=== PATIENT | male | born 1950 | race Caucasian/White ===

== ENCOUNTER 2018-11-12 11:27 | Inpatient (IN) | payer MEDICARE, OTHER ==
[~2018-11-12] VITALS: Ht 188 cm; Wt 87.5 kg
[2018-11-12 12:11] LABS: Urine Bacteria FEW /hpf (None Seen); Urine Blood TRACE /uL (Negative); Urine Mucus FEW (None Seen); Urine Specific Gravity 1.026 (1.001-1.035); Urine WBC 10 /hpf (0 - 3)
[2018-11-12 12:16] LABS: Basophils # (auto) 0.1 uL; Basophils % (auto) 0.3 % (0.0-2.0); Eosinophils # (auto) 0 uL; Hematocrit 45.3 % (41.0-53.0); Hemoglobin 14.9 g/dL (13.5-17.5); Lymphocytes # (auto) 1.3 uL; Lymphocytes % (auto) 5.9 % (10.0-50.0); Mean Corpuscular Hemoglobin 28.6 pg (28.0-32.0); Mean Corpuscular Hgb Conc. 32.9 g/dL (32.0-36.0); Monocytes # (auto) 0.9 uL; Monocytes % (auto) 4.4 % (0.0-12.0); Neutrophils # (auto) 19.1 uL; Neutrophils % (auto) 89.4 % (37.0-80.0); Platelet Count (auto) 346 10^3/uL (140-450); Red Blood Cells 5.21 10^6/uL (4.5-5.90); White Blood Cell 21.3 10^3/uL (4.4-10.8)
[2018-11-12 12:28] LABS: Albumin 2.9 g/dL (3.4-5.0); BUN/Creatinine Ratio 10.9; Calcium 8.8 mg/dL (8.5-10.1); Potassium 4.9 mmol/L (3.5-5.1)
[2018-11-12 12:31] LABS: Bilirubin, Total 0.8 mg/dL (0.2-1.0)
[2018-11-12] MEDS ORDERED: SODIUM CHLORIDE 0.9% 1,000 ML IV ONE ×2 (12:40)
[2018-11-12] MEDS ORDERED: TAMSULOSIN HYDROCHLORIDE 0.4 MG CAP PO ONE (12:45)
[2018-11-12] MEDS ORDERED: cefTRIAXone 1GM/50ML D5W 50 ML IV ONE (12:45)
[2018-11-12] MEDS ORDERED: InsuLIN REG 1unit/0.01ml Soln (100units/ml) SC ONE (13:00)
[2018-11-12] MEDS ORDERED: ONDANSETRON HCL 4 MG/2 ML VIAL IV PRN (14:45)
[2018-11-12] MEDS ORDERED: DEXTROSE (50%) 50ML SYRG IV PRN (14:45)
[2018-11-12] MEDS ORDERED: HYDROcodone-ACET 5/325MG TAB PO PRN (14:45)
[2018-11-12] MEDS ORDERED: NITROGLYCERIN 0.4 MG SL TAB SL PRN (14:45)
[2018-11-12] MEDS ORDERED: MORPHINE SULF INJ 2 MG/ML SYRINGE 1ML IV PRN ×2 (14:45)
[2018-11-12] MEDS: SODIUM CHLORIDE 0.9% 1,000 ML IV SCH ×2 (15:03→23:18)
[2018-11-12] MEDS ORDERED: ASPI81CH43 PO (16:01)
[2018-11-12] MEDS: ACCU-CHEK COMFORT CURVE STRIP VI SCH ×2 (16:21→21:36)
--- NOTE | 2018-11-12 16:27 | NUR ---
Telemetry admit from ER BOLIVAR CORCORAN admitted to Telemetry unit after report received from ED. Patient oriented to NAZ CHICAS, RN primary RN, unit, room, bed, and unit policies regarding patient care and visiting hours. Patient now on continuous telemetry monitoring, tele box #7. Patient placed on bedside oxygen at 2L via NC, weighed by bedscale and encouraged to call if they need something. All questions and concerns addressed, patient verbalized understanding. Note: []
[2018-11-12 17:00] VITALS: BP 116/69
[2018-11-12] MEDS: TAMSULOSIN HYDROCHLORIDE 0.4 MG CAP PO SCH (18:34)
[2018-11-12] MEDS: InsuLIN REG 1unit/0.01ml Soln (100units/ml) SC SCH ×2 (18:35→21:37)
[2018-11-12] MEDS: NYSTATIN (MOUTH-THROAT) 500,000 UNITS/5 ML SUSP MT SCH ×2 (18:35→21:36)
--- NOTE | 2018-11-12 18:35 | NUR ---
BLOOD SUGAR/INSULIN ED REPORTED A BLOOD SUGAR OF 346 AND SAID THEY GAVE 4 UNITS OF INSULIN (eMAR SHOWS 3 UNITS GIVEN) AT 1349. THIS NURSE CHECKED THE PATIENT'S BLOOD SUGAR AROUND 1600 AND IT WAS 327. SINCE THE INSULIN HAD BEEN GIVEN A COUPLE OF HOURS BEFORE, THE INSULIN WAS HELD TO AVOID THE PATIENT BOTTOMING OUT THE INSULIN DOSES CAUGHT UP. THE BLOOD SUGAR WAS CHECKED AGAIN AROUND 1730 AND IT WAS 287. DINNER WAS BROUGHT UP TO THE FLOOR AND 9 UNITS OF INSULIN WERE GIVEN. NEXT SCHEDULED BLOOD SUGAR CHECK IS AT 2000. WILL INFORM [employer] INTERPRETER NURSE OF THESE BLOOD SUGARS AND WHAT TIME INSULIN WAS GIVEN.
--- NOTE | 2018-11-12 19:30 | NUR ---
Opening Shift Note Assumed care of patient, awake and alert x4. Family member noted at bedside. Patient denies pain at this time. No S/S of distress/SOB noted at this time. Instructed on plan of care and to call for assistance as needed. Bed is locked in lowest position, side rails x 2 are up, call light is within reach, and bed alarm is on.
[2018-11-12] MEDS: ACETAMINOPHEN 500 MG TAB PO PRN (20:00)
--- NOTE | 2018-11-12 21:30 | NUR ---
ELEVATED TEMPERATURE Provided patient with ice packs to place under armpits, behind neck, and on forehead. Removed blanket from patient and lowered temperature in room. Cooling measures are in place. Will continue to monitor patient.
[2018-11-12 22:00] VITALS: BP 156/103
[2018-11-12 22:05] VITALS: BP 147/86
--- NOTE | 2018-11-12 22:10 | NUR ---
SPOKE WITH HOSPITALIST RE: ELEVATED TEMP Notified Alona Ellis that at approximately 19:40 patient was complaining of chills and feeling hot. Temperature was found to be 99.3. Notified PATRICIA Baez, that this RN administered acetaminophen at 20:00 and upon reassessment, temperature was found to be 102.8, blood pressure: 147/86, and heart rate 120. PATRICIA Baez notified that patient is still complaining of chills and feeling hot and that cooling measures are in place. PATRICIA Baez made aware of current WBC and lactic acid levels. Orders to start vancomycin per protocol tonight and orders for ibuprofen 400mg PO x 1 to be given now received. Orders read back and verified. Will carry out orders as received.
[2018-11-12] MEDS ORDERED: VANCOMYCIN PER PHARMACY 0 MG IV SCH (22:15)
[2018-11-12] MEDS ORDERED: IBUPROFEN 400 MG TAB PO ONE (22:15)
[2018-11-12] MEDS ORDERED: VANCOMYCIN 1GM/250ML 250 ML IV ONE (23:00)
--- NOTE | 2018-11-13 00:05 | NUR ---
REASSESSMENT: TEMPERATURE Patients temperature is trending down. Temperature upon reassessment was found to be 100.7. Patient denies chills at this time. Cooling measures are still in place. Bed is locked in lowest position, side rails x 2 are up, call light is within reach, and bed alarm is on.
[2018-11-13] MEDS: ACCU-CHEK COMFORT CURVE STRIP VI SCH ×6 (00:21→21:04)
[2018-11-13] MEDS: InsuLIN REG 1unit/0.01ml Soln (100units/ml) SC SCH ×6 (00:22→21:04)
--- NOTE | 2018-11-13 03:45 | NUR ---
HOSPITALIST PAGED RE: BLOOD CULTURE RESULTS Hospitalist paged regarding positive blood cultures: gram negative erin. Awaiting call back.
--- NOTE | 2018-11-13 03:51 | NUR ---
HOSPITALIST CALLED BACK RE: BLOOD CULTURES Notified Alona Ellis that patients blood cultures came back positive for gram negative rods. Orders to discontinue Rocephin and continue vancomycin received. Orders to start Zosyn 3.375gm IVP scheduled every six hours received. Orders read back and verified. Will carry out orders as received.
[2018-11-13] MEDS: NYSTATIN (MOUTH-THROAT) 500,000 UNITS/5 ML SUSP MT SCH ×4 (04:51→21:04)
[2018-11-13] MEDS: PIPERACILLIN-TAZOB 3.375GM 100 ML IV SCH ×3 (04:52→18:01)
[2018-11-13 05:00] VITALS: BP 114/70
[2018-11-13] MEDS: SODIUM CHLORIDE 0.9% 1,000 ML IV SCH ×2 (06:55→22:34)
[2018-11-13 07:20] LABS: Basophils # (auto) 0 uL; Basophils % (auto) 0.3 % (0.0-2.0); Eosinophils # (auto) 0 uL; Eosinophils % (auto) 0.1 % (0.0-7.0); Hematocrit 37.9 % (41.0-53.0); Hemoglobin 12.4 g/dL (13.5-17.5); Lymphocytes # (auto) 0.8 uL; Lymphocytes % (auto) 5.5 % (10.0-50.0); Mean Corpuscular Hemoglobin 28.5 pg (28.0-32.0); Mean Corpuscular Hgb Conc. 32.7 g/dL (32.0-36.0); Monocytes % (auto) 6.5 % (0.0-12.0); Neutrophils # (auto) 13.3 uL; Neutrophils % (auto) 87.6 % (37.0-80.0); Platelet Count (auto) 233 10^3/uL (140-450); Red Blood Cells 4.35 10^6/uL (4.5-5.90); Red Cell Distribution Width 13.8 % (11.8-14.3); White Blood Cell 15.2 10^3/uL (4.4-10.8)
--- NOTE | 2018-11-13 07:20 | NUR ---
Open Shift Note Received report on patient, awake and sitting up in bed. Patient shows no signs of distress at this time. Discussed POC with patient. Bed in lowest locked position, side rails up x2 and call light within reach. Will continue to monitor.
[2018-11-13 07:38] LABS: BUN/Creatinine Ratio 13.7; Calcium 7.9 mg/dL (8.5-10.1); Potassium 4.4 mmol/L (3.5-5.1)
[2018-11-13 08:11] VITALS: BP 115/68
[2018-11-13] MEDS ORDERED: cefTRIAXone 1GM/50ML D5W 50 ML IV SCH (09:00)
[2018-11-13] MEDS: FAMOTIDINE 20 MG TAB PO SCH (10:08)
[2018-11-13] MEDS: VANCOMYCIN 750mg/250ml 250 ML IV SCH ×2 (11:06→22:51)
[2018-11-13 13:00] VITALS: BP 126/82
[2018-11-13 16:39] VITALS: BP 129/73
[2018-11-13] MEDS: ACETAMINOPHEN 500 MG TAB PO PRN (16:41)
[2018-11-13] MEDS: TAMSULOSIN HYDROCHLORIDE 0.4 MG CAP PO SCH (18:03)
--- NOTE | 2018-11-13 18:49 | NUR ---
Closing Note Patient sitting up in bed, shows no signs of distress at this time.
--- NOTE | 2018-11-13 19:30 | NUR ---
Opening Shift Note Assumed care of patient, awake and alert x4. Patient denies pain at this time. No S/S of distress/SOB noted at this time. Instructed on plan of care and to call for assistance as needed. Bed is locked in lowest position, side rails x 2 are up, call light is within reach, and bed alarm is on.
[2018-11-13 22:11] VITALS: BP 106/77
[2018-11-14] MEDS: PIPERACILLIN-TAZOB 3.375GM 100 ML IV SCH ×2 (00:09→06:17)
[2018-11-14] MEDS: InsuLIN REG 1unit/0.01ml Soln (100units/ml) SC SCH ×6 (00:33→20:20)
[2018-11-14] MEDS: ACCU-CHEK COMFORT CURVE STRIP VI SCH ×6 (00:33→20:20)
[2018-11-14 05:56] VITALS: BP 142/84
[2018-11-14] MEDS: NYSTATIN (MOUTH-THROAT) 500,000 UNITS/5 ML SUSP MT SCH ×4 (06:17→22:08)
[2018-11-14] MEDS: SODIUM CHLORIDE 0.9% 1,000 ML IV SCH ×4 (06:20→22:11)
--- NOTE | 2018-11-14 06:30 | NUR ---
IV insertion IV access obtained, via clean sterile technique by inserting 22 gauge catheter at left hand after 1 attempt. IV secured properly. No trauma to site. Patient tolerated well. IV removal IV to right forearm DC'd with clean sterile technique, catheter fully intact. Pressure dressing applied to site. Patient tolerated well.
[2018-11-14 07:22] LABS: Basophils # (auto) 0 uL; Basophils % (auto) 0.4 % (0.0-2.0); Eosinophils # (auto) 0 uL; Eosinophils % (auto) 0.2 % (0.0-7.0); Hematocrit 38.5 % (41.0-53.0); Lymphocytes # (auto) 1.3 uL; Lymphocytes % (auto) 13.1 % (10.0-50.0); Mean Corpuscular Hemoglobin 29.1 pg (28.0-32.0); Mean Corpuscular Hgb Conc. 33.7 g/dL (32.0-36.0); Mean Corpuscular Volume 86.4 fL (80.0-100.0); Monocytes # (auto) 0.8 uL; Monocytes % (auto) 8.4 % (0.0-12.0); Neutrophils # (auto) 7.8 uL; Neutrophils % (auto) 77.9 % (37.0-80.0); Platelet Count (auto) 307 10^3/uL (140-450); Red Blood Cells 4.45 10^6/uL (4.5-5.90); Red Cell Distribution Width 13.2 % (11.8-14.3)
--- NOTE | 2018-11-14 07:30 | NUR ---
Opening Shift Note Assumed care of patient, awake, alert, and oriented x4. No S/S of distress/SOB or pain. IV is in left hand 20 gauge and is asymptomatic, intact, patent, and saline locked. Bed is locked and in lowest position and call light is within reach. Instructed on POC and to call for assist PRN, and patient verbalized understanding. Will continue to monitor for changes Q1hr and PRN.
[2018-11-14 07:38] LABS: Albumin 2.3 g/dL (3.4-5.0); Calcium 8.4 mg/dL (8.5-10.1); Potassium 4.6 mmol/L (3.5-5.1)
[2018-11-14 07:40] LABS: Bilirubin, Total 0.5 mg/dL (0.2-1.0); Total Protein 6.4 g/dL (6.4-8.2)
[2018-11-14 08:43] VITALS: BP 155/99
[2018-11-14] MEDS: ACETAMINOPHEN 500 MG TAB PO PRN ×2 (09:15→23:03)
[2018-11-14] MEDS: cefTRIAXone 1GM/50ML D5W 50 ML IV SCH (09:15)
--- NOTE | 2018-11-14 09:36 | NUR ---
Dr. Jean, Hospitalist, at bedside. New orders received.
[2018-11-14] MEDS: FAMOTIDINE 20 MG TAB PO SCH (10:55)
[2018-11-14] MEDS ORDERED: METOPROLOL TARTRATE 25 MG TAB PO ONE (11:00)
[2018-11-14 12:22] VITALS: BP 122/70
[2018-11-14 16:46] VITALS: BP 148/85
--- NOTE | 2018-11-14 17:34 | NUR ---
Patient found sitting on the floor by OFFICE RN, patient reported that " he was reaching for something and slipped out of bed." Patient stated that he thinks he hit his head on the right side on the top, but that he does not have pain on his head at this time. Patient was helped back into bed. Paged Hospitalist, and received an immediate call back. Patient now resting in bed, no distress noted. Will continue to monitor Q30 minutes.
[2018-11-14] MEDS: TAMSULOSIN HYDROCHLORIDE 0.4 MG CAP PO SCH (18:31)
--- NOTE | 2018-11-14 19:30 | NUR ---
Opening Shift Note Assumed care of patient, awake and alert x4. Patient denies pain or headache at this time. No S/S of distress/shortness of breath noted at this time. Instructed on plan of care and to call for assistance as needed. Bed is locked in lowest position, side rails x 2 are up, call light is within reach, and bed alarm is on.
[2018-11-14 22:00] VITALS: BP 104/67
[2018-11-14] MEDS: METOPROLOL TARTRATE 25 MG TAB PO SCH (22:10)
[2018-11-15] MEDS: ACCU-CHEK COMFORT CURVE STRIP VI SCH ×6 (00:14→21:46)
[2018-11-15] MEDS: InsuLIN REG 1unit/0.01ml Soln (100units/ml) SC SCH ×7 (00:14→21:46)
--- NOTE | 2018-11-15 04:24 | NUR ---
SPOKE WITH HOSPITALIST RE: ELEVATED BLOOD PRESSURE Made [employer] Francisco Yarbrough aware of patients elevated blood pressure. Orders for clonidine 0.1mg PO x this one time received. Order read back and verified. Will carry out order as received.
[2018-11-15 04:27] VITALS: BP 169/101
[2018-11-15] MEDS ORDERED: cloNIDine HCL 0.1 MG TAB PO ONE (04:30)
[2018-11-15] MEDS: NYSTATIN (MOUTH-THROAT) 500,000 UNITS/5 ML SUSP MT SCH ×4 (04:38→21:47)
--- NOTE | 2018-11-15 06:00 | NUR ---
HYGIENE Patient called for assistance due to soiling the bed with stool. Patient was cleaned, gown was changed, and a full linen change was completed with the assistance of anibal Mcallister and Mary. Patient tolerated well. No S/S of distress or shortness of breath noted at this time. Bed is locked in lowest position, side rails x 2 are up, call light is within reach, and bed alarm is on.
[2018-11-15 06:12] VITALS: BP 136/75
[2018-11-15] MEDS: SODIUM CHLORIDE 0.9% 1,000 ML IV SCH ×3 (06:50→22:34)
[2018-11-15 07:11] LABS: Basophils # (auto) 0 uL; Basophils % (auto) 0.3 % (0.0-2.0); Eosinophils # (auto) 0 uL; Hematocrit 41.8 % (41.0-53.0); Hemoglobin 13.9 g/dL (13.5-17.5); Lymphocytes # (auto) 0.8 uL; Lymphocytes % (auto) 5.7 % (10.0-50.0); Mean Corpuscular Hemoglobin 28.6 pg (28.0-32.0); Mean Corpuscular Hgb Conc. 33.3 g/dL (32.0-36.0); Mean Corpuscular Volume 85.9 fL (80.0-100.0); Monocytes # (auto) 0.5 uL; Monocytes % (auto) 3.7 % (0.0-12.0); Neutrophils # (auto) 12.6 uL; Neutrophils % (auto) 90.3 % (37.0-80.0); Platelet Count (auto) 321 10^3/uL (140-450); Red Blood Cells 4.87 10^6/uL (4.5-5.90); Red Cell Distribution Width 13.5 % (11.8-14.3)
[2018-11-15 07:38] LABS: Potassium 4.3 mmol/L (3.5-5.1)
[2018-11-15 07:47] LABS: Albumin 2.6 g/dL (3.4-5.0); BUN/Creatinine Ratio 11.6; Bilirubin, Total 0.7 mg/dL (0.2-1.0); Calcium 8.8 mg/dL (8.5-10.1); Total Protein 7.3 g/dL (6.4-8.2)
[2018-11-15] MEDS: cefTRIAXone 1GM/50ML D5W 50 ML IV SCH (09:10)
[2018-11-15] MEDS: ACETAMINOPHEN 500 MG TAB PO PRN ×2 (09:13→17:30)
--- NOTE | 2018-11-15 09:30 | NUR ---
Dr. Jean, Hospitalist, at bedside.
[2018-11-15] MEDS: METOPROLOL TARTRATE 25 MG TAB PO SCH ×2 (10:00→21:47)
[2018-11-15] MEDS: FAMOTIDINE 20 MG TAB PO SCH (10:05)
[2018-11-15 13:00] VITALS: BP 152/78
--- NOTE | 2018-11-15 14:46 | NUR ---
NUTRITION ASSESSMENT NOTES Please refer to link notes of nutrition screen form filed under the intervention section of the plan of care for further details. Est. Needs: 2150 kcal to 2600 kcal (25-30 kcal/kgBW), 69 gms to 86 gms pro (0.8-1.0 gms/kgBW). Will continue to monitor pertinent labs and reassess nutrient need prn Thank you. Addendum: 11/15/18 at [address] Amended: Links added.
[2018-11-15 17:00] VITALS: BP 155/89
[2018-11-15] MEDS: TAMSULOSIN HYDROCHLORIDE 0.4 MG CAP PO SCH (18:09)
[2018-11-15 21:55] VITALS: BP 132/78
--- NOTE | 2018-11-15 23:00 | NUR ---
ELEVATED TEMPERATURE Patient complaining of chills. Upon assessment, patient found to have temperature of 102.1. Cooling measures are in place. Will continue to monitor patient.
--- NOTE | 2018-11-16 00:10 | NUR ---
REASSESSMENT: ELEVATED TEMPERATURE Patients temperature found to be 101.1. Cooling measures are still in place. Patient denies chills at this time.
--- NOTE | 2018-11-16 00:20 | NUR ---
HOSPITALIST PAGED RE: ELEVATED TEMPERATURE Hospitalist paged regarding elevated temperature. Patient has acetaminophen 500mg PO every 8 hours as needed ordered, patient was medicated for elevated temperature at 17:30. Awaiting call back.
[2018-11-16] MEDS: ACCU-CHEK COMFORT CURVE STRIP VI SCH ×4 (00:29→11:35)
[2018-11-16] MEDS: InsuLIN REG 1unit/0.01ml Soln (100units/ml) SC SCH ×4 (00:30→11:46)
[2018-11-16] MEDS ORDERED: ACETAMINOPHEN 500 MG TAB PO PRN (00:45)
[2018-11-16] MEDS ORDERED: IBUPROFEN 600 MG TAB PO ONE (00:45)
[2018-11-16] MEDS ORDERED: SODIUM CHLORIDE 0.9% 500 ML IV ONE (00:45)
[2018-11-16 05:47] VITALS: BP 123/68
[2018-11-16 06:07] LABS: Basophils # (auto) 0 uL; Basophils % (auto) 0.4 % (0.0-2.0); Eosinophils # (auto) 0 uL; Eosinophils % (auto) 0.2 % (0.0-7.0); Hematocrit 36.1 % (41.0-53.0); Hemoglobin 12.1 g/dL (13.5-17.5); Lymphocytes # (auto) 1.1 uL; Lymphocytes % (auto) 10.9 % (10.0-50.0); Mean Corpuscular Hgb Conc. 33.6 g/dL (32.0-36.0); Mean Corpuscular Volume 86.2 fL (80.0-100.0); Monocytes # (auto) 0.8 uL; Monocytes % (auto) 7.5 % (0.0-12.0); Neutrophils # (auto) 8.5 uL; Platelet Count (auto) 285 10^3/uL (140-450); Red Blood Cells 4.19 10^6/uL (4.5-5.90); Red Cell Distribution Width 13.6 % (11.8-14.3); White Blood Cell 10.4 10^3/uL (4.4-10.8)
[2018-11-16 06:08] LABS: Albumin 2.2 g/dL (3.4-5.0); Calcium 8.4 mg/dL (8.5-10.1); Potassium 3.8 mmol/L (3.5-5.1)
[2018-11-16 06:10] LABS: BUN/Creatinine Ratio 11.9; Bilirubin, Total 0.5 mg/dL (0.2-1.0); Total Protein 6.3 g/dL (6.4-8.2)
[2018-11-16] MEDS: SODIUM CHLORIDE 0.9% 1,000 ML IV SCH (06:44)
[2018-11-16] MEDS: NYSTATIN (MOUTH-THROAT) 500,000 UNITS/5 ML SUSP MT SCH ×2 (06:45→11:46)
[2018-11-16 09:00] VITALS: BP 113/61
[2018-11-16] MEDS: FAMOTIDINE 20 MG TAB PO SCH (09:25)
[2018-11-16] MEDS: cefTRIAXone 1GM/50ML D5W 50 ML IV SCH (09:25)
[2018-11-16] MEDS: METOPROLOL TARTRATE 25 MG TAB PO SCH (09:26)
--- NOTE | 2018-11-16 10:18 | NUR ---
assessment No needs identified. Addendum: 11/17/18 at 1018 by Desirae PEREZ Amended: Links added.
[2018-11-16 11:11] VITALS: BP 113/61
[2018-11-16 13:00] VITALS: BP 131/74
--- NOTE | 2018-11-16 15:34 | NUR ---
DISCHARGE INSTRUCTIONS GIVEN TO PT AND PT . NOTED PT TO BE SHAKING WHILE SITTING IN WHEELCHAIR. TEMP 98.5 ORALLY. TYLENOL 650 MG GIVEN PO. PT SIGNED ALL APPROPRIATE PAPERWORK AND DISCHARGED HOME .
== END 2018-11-16 14:30 | disposition home or self-care (01) | DRG 871 ==
LOC: ER 11:29 → TELE 11:30 → TELE-EAST 15:45
PROVIDERS: ADMIT Nurse Practitioner Acute Care; ATTEND Family Medicine
DX: A41.51 Sepsis due to Escherichia coli [E. coli] (principal); N17.0 Acute kidney failure with tubular necrosis; N39.0 Urinary tract infection, site not specified; E44.0 Moderate protein-calorie malnutrition; B37.0 Candidal stomatitis; E87.1 Hypo-osmolality and hyponatremia; N20.0 Calculus of kidney; N18.3 Chronic kidney disease, stage 3 (moderate); I70.8 Atherosclerosis of other arteries; E11.22 Type 2 diabetes mellitus with diabetic chronic kidney disease; E11.65 Type 2 diabetes mellitus with hyperglycemia; E86.0 Dehydration; I67.2 Cerebral atherosclerosis; I70.0 Atherosclerosis of aorta; K44.9 Diaphragmatic hernia without obstruction or gangrene; K57.30 Diverticulosis of large intestine without perforation or abscess without bleeding; N40.0 Benign prostatic hyperplasia without lower urinary tract symptoms; Z85.820 Personal history of malignant melanoma of skin; Z86.73 Personal history of transient ischemic attack (TIA), and cerebral infarction without residual deficits; Z87.442 Personal history of urinary calculi; Z68.24 Body mass index [BMI] 24.0-24.9, adult; Z79.899 Other long term (current) drug therapy
CPT/HCPCS: 36415; 70450; 71045; 74176; 80048; 80053; 81001; 82962; 83036; 83605; 85025; 87040; 87077; 87086; 87088; 87186; 96365; 96372; G0378; J0696; J1815; J2543